=== PATIENT | male | born 1985 | race Caucasian/White ===

== ENCOUNTER 2023-08-13 09:37 | Emergency (ER) | payer BC ==
[2023-08-13 10:05] VITALS: BP 149/96; PULSE 90; RESP 18; TEMP 97.4; BMI 25.7
[2023-08-13] MEDS ORDERED: KETOROLAC TROMETHAMINE 30 MG/1 ML VIAL IM ONE (11:03)
== END 2023-08-13 11:45 | disposition home or self-care (01) ==
LOC: JERFT 09:37
PROC: 3E0233Z Introduction of Anti-inflammatory into Muscle, Percutaneous Approach (ICD-10-PCS; principal; 2023-08-13)
DX: S62.346A Nondisplaced fracture of base of fifth metacarpal bone, right hand, initial encounter for closed fracture (principal); M79.641 Pain in right hand; R22.31 Localized swelling, mass and lump, right upper limb; W22.09XA Striking against other stationary object, initial encounter; Y99.0 Civilian activity done for income or pay
CPT/HCPCS: 73110-TC-RT-FY; 73130-TC-RT-FY; 99284-25

== ENCOUNTER 2024-03-29 10:19 | Emergency (ER) | payer BC ==
[2024-03-29 10:24] VITALS: RESP 20; TEMP 97.6; BMI 27.8
[2024-03-29 11:10] LABS: BASO % 0.7 % (0-2.0); HEMATOCRIT 41.6 % (35.4-49); HEMOGLOBIN 14.2 GM/dL (11.7-16.9); LYMPH % 31.8 % (8-40); MCH 30.6 pg (25.7-33.7); MEAN CELL VOLUME 89.7 fl (80-96); MEAN PLT VOLUME 8.6 fl (7.5-11.1); NEUT % 50.5 % (42.8-82.8); PLATELET COUNT 245 10^3/uL (134-434); RBC 4.63 M/mm3 (4.00-5.60); RDW 13.5 % (11.9-15.9); WHITE BLOOD COUNT 3.9 K/mm3 (4.0-10.0)
[2024-03-29 11:18] LABS: INR 0.88 (0.83-1.09); PROTHROMBIN TIME (PATIENT) 10.2 SEC (9.7-13.0)
[2024-03-29 11:27] LABS: POTASSIUM 4.1 mmol/L (3.5-5.1)
[2024-03-29 11:29] LABS: CALCIUM 9.4 mg/dL (8.5-10.1)
[2024-03-29 11:30] LABS: ALBUMIN 4.3 g/dl (3.4-5.0); BLOOD UREA NITROGEN 20.2 mg/dL (7-18)
[2024-03-29 11:32] LABS: ACTIVATED PTT 35.3 SECONDS (25.2-36.5)
[2024-03-29 11:35] LABS: BILIRUBIN,TOTAL 0.7 mg/dL (0.2-1); TOT PROT 7.5 g/dl (6.4-8.2)
[2024-03-29 14:35] VITALS: BP 135/91; PULSE 57
== END 2024-03-29 14:35 | disposition home or self-care (01) ==
LOC: JER 10:19
DX: R07.2 Precordial pain (principal); F41.9 Anxiety disorder, unspecified; X50.0XXA Overexertion from strenuous movement or load, initial encounter
CPT/HCPCS: 36415; 71046-TC-FY; 76705-TC; 80053; 83690; 83735; 84484; 85025; 85610; 85730; 93005; 93010; 99285-25